=== PATIENT | male | born 2000 | race Caucasian/White ===

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

== ENCOUNTER 2020-08-08 12:42 | Emergency (ER) | payer OTHER ==
[2020-08-08 12:49] VITALS: BP 165/86; PULSE 96; RESP 16; TEMP 98.5
--- NOTE | 2020-08-08 13:19 | ED ---
Recheck HPI - General Chief Complaint: Recheck/Abnormal Lab/Rx Stated Complaint: [facility] - sent for drug testing Time Seen by Provider: 08/08/20 12:50 Source: patient Mode of arrival: ambulatory Limitations: no limitations - History of Present Illness Initial Comments: Patient is a 20-year-old male presenting to the emergency department for a drug test. Patient states his work sent him in after he accidentally hit a garage door with the forklift. Patient denies any injuries. Patient states this is a work requirement. There are no further complaints. - Related Data Home Medications Medication Instructions Recorded Confirmed Citalopram Hydrobromide [CeleXA] 20 mg PO DAILY 07/29/16 01/26/19 Allergies Allergy/AdvReac Type Severity Reaction Status Date / Time No Known Allergies Allergy Verified 08/08/20 12:49 Review of Systems ROS Statement: Those systems with pertinent positive or pertinent negative responses have been documented in the HPI. ROS Other: All systems not noted in ROS Statement are negative. Past Medical History Additional Past Medical History / Comment(s): rosa maria History of Any Multi-Drug Resistant Organisms: None Reported Past Surgical History: No Surgical Hx Reported Past Psychological History: Anxiety, Depression Smoking Status: Never smoker Past Alcohol Use History: None Reported Past Drug Use History: None Reported General Exam - General Exam Comments Initial Comments: GENERAL: Patient is well-developed and well-nourished. Patient is nontoxic and in no acute distress. HEAD: Atraumatic, normocephalic. EYES: Pupils equal round and reactive to light, extraocular movements intact, sclera anicteric, conjunctiva are normal. Eyelids were unremarkable. ENT: Nares patent, oropharynx clear without exudates. Moist mucous membranes. NECK: Normal range of motion, supple without lymphadenopathy or JVD. LUNGS: Unlabored respirations. Breath sounds clear to auscultation bilaterally and equal. No wheezes rales or rhonchi. HEART: Regular rate and rhythm without murmurs, rubs or gallops. ABDOMEN: Soft, nontender, normoactive bowel sounds. : Deferred MUSCULOSKELETAL: Normal extremities with adequate strength and normal range of motion, no pitting or edema. No clubbing or cyanosis. NEUROLOGICAL: Patient is alert and oriented x 3. Normal speech, normal gait. PSYCH: Normal mood, normal affect. SKIN: Warm, Dry, normal turgor, no rashes or lesions noted. Limitations: no limitations Course Vital Signs 08/08/20 12:46 Temperature 98.5 F Pulse Rate 96 Respiratory 16 Rate Blood Pressure 165/86 O2 Sat by Pulse 99 Oximetry Medical Decision Making - Medical Decision Making Patient is a 20-year-old male sent in by his work for a drug screen after he accidentally hit a carotid stent or with a forklift today. He has no injuries. There are no further complaints. Drug test was obtained and will be sent in. He is stable for discharge. Disposition Clinical Impression: Employment-related drug testing, encounter for Disposition: HOME SELF-CARE Condition: Stable Additional Instructions: Please return to the Emergency Department if symptoms worsen or any other concerns. Is patient prescribed a controlled substance at d/c from ED?: No Referrals: Isaiah Reyes Jr, DO [Primary Care Provider] - 1-2 days Time of Disposition: 13:19
== END 2020-08-08 13:31 | disposition home or self-care (01) ==
LOC: EC 12:42
DX: Z02.83 Encounter for blood-alcohol and blood-drug test (principal); F32.9 Major depressive disorder, single episode, unspecified; W22.09XA Striking against other stationary object, initial encounter
CPT/HCPCS: 99282